=== PATIENT | female | born 1980 | race American Indian/Alaskan Native ===

== ENCOUNTER 2018-08-31 19:44 | Emergency (ER) | payer OTHER ==
[2018-08-31] MEDS ORDERED: KEPPRA 1,000 MG/NS 0.75% 100ML 1,000 MG/100 ML BAG IV ONE (20:36)
[2018-08-31 20:43] LABS: Hematocrit 36.2 % (30.3-42.9); Hemoglobin 12.2 gm/dl (10.1-14.3); Mean Corpuscular HGB Conc 34 % (30-34); Mean Corpuscular Volume 90 fl (79-97); Platelet Count 237 K/mm3 (140-440); Red Blood Count 4.01 M/mm3 (3.65-5.03); Red Cell Distribution Width 15.2 % (13.2-15.2)
[2018-08-31] MEDS ORDERED: CATAPRES PO ONE (20:55)
--- NOTE | 2018-08-31 20:55 | Emergency Department Report ---
ED Seizure HPI - General Chief Complaint: Seizure Stated Complaint: BLURRED VISION, DIZZY, LOW BACK PAIN Time Seen by Provider: 08/31/18 20:17 Source: EMS Mode of arrival: Stretcher Limitations: No Limitations - History of Present Illness Initial Comments: 37-year-old female with past medical history of hypertension, seizures, and "kidney issue since she was a child" presents to the hospital complaining of seizure prior to arrival. Patient denies tongue laceration or urinary incontinence. She has been noncompliant with his seizure and blood pressure medicine for at least 2 months. He cannot recall her seizure medications that thinks it starts with "C". She also states she takes hydrochlorothiazide 5 mg daily which is reduced from 25 mg but she is also unsure of this medication. Patient currently denies blurred vision or headache. She complains of bilateral back pain which is chronic and ongoing. She complains of dysuria 3 days withou t reports of fever. She currently does not have a primary care doctor. Last sz was 2 months ago - Related Data Previous Rx's Medication Instructions Recorded Last Taken Type amLODIPine [Norvasc] 5 mg PO DAILY #30 tab 09/01/18 Unknown Rx levETIRAcetam [Keppra TAB] 500 mg PO BID #60 tablet 09/01/18 Unknown Rx Allergies Allergy/AdvReac Type Severity Reaction Status Date / Time Penicillins AdvReac Anaphylaxis Verified 08/31/18 20:07 ED Review of Systems ROS: Stated complaint: BLURRED VISION, DIZZY, LOW BACK PAIN Other details as noted in HPI Comment: All other systems reviewed and negative ED Past Medical Hx - Past Medical History Previous Medical History?: Yes Hx Hypertension: Yes Hx Seizures: Yes Hx Kidney Stones: Yes Additional medical history: "Kidney issues" - Surgical History Past Surgical History?: No - Social History Smoking Status: Current Some Day Smoker Substance Use Type: Alcohol - Medications Home Medications: Home Medications Medication Instructions Recorded Confirmed Last Taken Type amLODIPine [Norvasc] 5 mg PO DAILY #30 tab 09/01/18 Unknown Rx levETIRAcetam [Keppra TAB] 500 mg PO BID #60 tablet 09/01/18 Unknown Rx ED Physical Exam - General Limitations: No Limitations - Other Other exam information: General: No limitations, patient is alert in no acute distress Head exam: Atraumatic, normocephalic Eyes exam: Normal appearance, pupils equal reactive to light, extraocular move ments intact ENT: Moist mucous membrane, normal oropharynx without tongue laceration or abrasion Neck exam: Normal inspection, full range of motion, no meningismus nontender Respiratory exam: Clear to auscultation bilateral, no wheezes, rales, crackles Cardiovascular: Normal rate and rhythm, normal heart sounds Abdomen: Soft, nondistended, and nontender, with normal bowel sounds, no rebound, or guarding Extremity: Full range of motion normal inspection no deformity Back: Normal Inspection, full range of motion, no tenderness Neurologic: Alert, oriented x3, cranial nerves intact, no motor or sensory deficit Psychiatric: normal affect, normal mood Skin: Warm, dry, intact ED Course Vital Signs 08/31/18 08/31/18 08/31/18 19:56 20:00 20:08 Temperature Pulse Rate 67 Respiratory 12 12 Rate Blood Pressure 177/110 Blood Pressure 177/110 [Left] O2 Sat by Pulse 99 98 99 Oximetry 08/31/18 08/31/18 08/31/18 20:13 20:16 20:30 Temperature 98.4 F Pulse Rate 67 87 Respiratory 13 13 Rate Blood Pressure 177/110 177/110 Blood Pressure [Left] O2 Sat by Pulse 97 99 Oximetry 08/31/18 08/31/18 08/31/18 20:41 20:50 21:00 Temperature Pulse Rate 76 Respiratory 13 Rate Blood Pressure 177/110 175/123 Blood Pressure 181/126 [Left] O2 Sat by Pulse 99 98 Oximetry 08/31/18 08/31/18 08/31/18 21:04 21:15 21:31 Temperature Pulse Rate 72 68 Respiratory 12 Rate Blood Pressure 175/123 181/126 181/126 Blood Pressure [Left] O2 Sat by Pulse 98 98 Oximetry 08/31/18 08/31/18 08/31/18 21:45 22:00 22:15 Temperature Pulse Rate Respiratory Rate Blood Pressure 175/123 162/111 162/111 Blood Pressure [Left] O2 Sat by Pulse 99 98 99 Oximetry 09/01/18 09/01/18 00:43 03:32 Temperature Pulse Rate 71 60 Respiratory 15 17 Rate Blood Pressure Blood Pressure 167/106 139/97 [Left] O2 Sat by Pulse 100 99 Oximetry ED Medical Decision Making - Lab Data Result diagrams: 08/31/18 20:26 08/31/18 20:26 Lab Results 08/31/18 08/31/18 08/31/18 Range/Units 20:26 20:26 20:26 WBC 6.8 (4.5-11.0) K/mm3 RBC 4.01 (3.65-5.03) M/mm3 Hgb 12.2 (10.1-14.3) gm/dl Hct 36.2 (30.3-42.9) % MCV 90 (79-97) fl MCH 30 (28-32) pg MCHC 34 (30-34) % RDW 15.2 (13.2-15.2) % Plt Count 237 (140-440) K/mm3 Sodium 137 (137-145) mmol/L Potassium 4.1 (3.6-5.0) mmol/L Chloride 101.2 (98-107) mmol/L Carbon Dioxide 23 (22-30) mmol/L Anion Gap 17 mmol/L BUN 9 (7-17) mg/dL Creatinine 0.9 (0.7-1.2) mg/dL Estimated GFR > 60 ml/min BUN/Creatinine Ratio 10 % Glucose 112 H (65-100) mg/dL POC Glucose (70-105) Calcium 8.9 (8.4-10.2) mg/dL Magnesium 1.90 (1.7-2.3) mg/dL HCG, Qual (Negative) Urine Color (Yellow) Urine Turbidity (Clear) Urine pH (5.0-7.0) Ur Specific [place] (1.003-1.030) Urine Protein (Negative) mg/dL Urine Glucose (UA) (Negative) mg/dL Urine Ketones (Negative) mg/dL Urine Blood (Negative) Urine Nitrite (Negative) Urine Bilirubin (Negative) Urine Urobilinogen (<2.0) mg/dL Ur Leukocyte Esterase (Negative) Urine WBC (Auto) (0.0-6.0) /HPF Urine RBC (Auto) (0.0-6.0) /HPF U Epithel Cells (Auto) (0-13.0) /HPF Urine Mucus /HPF Urine Opiates Screen Urine Methadone Screen Ur Barbiturates Screen Ur Phencyclidine Scrn Ur Amphetamines Screen U Benzodiazepines Scrn Urine Cocaine Screen U Marijuana (THC) Screen Drugs of Abuse Note 08/31/18 08/31/18 08/31/18 Range/Units 20:26 20:31 20:55 WBC (4.5-11.0) K/mm3 RBC (3.65-5.03) M/mm3 Hgb (10.1-14.3) gm/dl Hct (30.3-42.9) % MCV (79-97) fl MCH (28-32) pg MCHC (30-34) % RDW (13.2-15.2) % Plt Count (140-440) K/mm3 Sodium (137-145) mmol/L Potassium (3.6-5.0) mmol/L Chloride (98-107) mmol/L Carbon Dioxide (22-30) mmol/L Anion Gap mmol/L BUN (7-17) mg/dL Creatinine (0.7-1.2) mg/dL Estimated GFR ml/min BUN/Creatinine Ratio % Glucose (65-100) mg/dL POC Glucose 100 (70-105) Calcium (8.4-10.2) mg/dL Magnesium (1.7-2.3) mg/dL HCG, Qual Negative (Negative) Urine Color Yellow (Yellow) Urine Turbidity Slightly-cloudy (Clear) Urine pH 9.0 H (5.0-7.0) Ur Specific [place] 1.021 (1.003-1.030) Urine Protein 100 mg/dl (Negative) mg/dL Urine Glucose (UA) Neg (Negative) mg/dL Urine Ketones Neg (Negative) mg/dL Urine Blood Lg (Negative) Urine Nitrite Neg (Negative) Urine Bilirubin Neg (Negative) Urine Urobilinogen 4.0 (<2.0) mg/dL Ur Leukocyte Esterase Neg (Negative) Urine WBC (Auto) 2.0 (0.0-6.0) /HPF Urine RBC (Auto) > 182.0 (0.0-6.0) /HPF U Epithel Cells (Auto) 16.0 H (0-13.0) /HPF Urine Mucus Few /HPF Urine Opiates Screen Urine Methadone Screen Ur Barbiturates Screen Ur Phencyclidine Scrn Ur Amphetamines Screen U Benzodiazepines Scrn Urine Cocaine Screen U Marijuana (THC) Screen Drugs of Abuse Note 08/31/18 Range/Units 20:55 WBC (4.5-11.0) K/mm3 RBC (3.65-5.03) M/mm3 Hgb (10.1-14.3) gm/dl Hct (30.3-42.9) % MCV (79-97) fl MCH (28-32) pg MCHC (30-34) % RDW (13.2-15.2) % Plt Count (140-440) K/mm3 Sodium (137-145) mmol/L Potassium (3.6-5.0) mmol/L Chloride (98-107) mmol/L Carbon Dioxide (22-30) mmol/L Anion Gap mmol/L BUN (7-17) mg/dL Creatinine (0.7-1.2) mg/dL Estimated GFR ml/min BUN/Creatinine Ratio % Glucose (65-100) mg/dL POC Glucose (70-105) Calcium (8.4-10.2) mg/dL Magnesium (1.7-2.3) mg/dL HCG, Qual (Negative) Urine Color (Yellow) Urine Turbidity (Clear) Urine pH (5.0-7.0) Ur Specific [place] (1.003-1.030) Urine Protein (Negative) mg/dL Urine Glucose (UA) (Negative) mg/dL Urine Ketones (Negative) mg/dL Urine Blood (Negative) Urine Nitrite (Negative) Urine Bilirubin (Negative) Urine Urobilinogen (<2.0) mg/dL Ur Leukocyte Esterase (Negative) Urine WBC (Auto) (0.0-6.0) /HPF Urine RBC (Auto) (0.0-6.0) /HPF U Epithel Cells (Auto) (0-13.0) /HPF Urine Mucus /HPF Urine Opiates Screen Presumptive negative Urine Methadone Screen Presumptive negative Ur Barbiturates Screen Presumptive negative Ur Phencyclidine Scrn Presumptive negative Ur Amphetamines Screen Presumptive negative U Benzodiazepines Scrn Presumptive negative Urine Cocaine Screen Presumptive negative U Marijuana (THC) Screen Presumptive positive Drugs of Abuse Note Disclamer - Radiology Data Radiology results: report reviewed PROCEDURE: CT ABDOMEN PELVIS WO CON TECHNIQUE: Helical CT was performed of the abdomen. No intravenous or oral contrast were given. Scanning was performed in the axial plane. Images were reconstructed in sagittal and coronal planes. HISTORY: back pain, hematuria COMPARISONS: None FINDINGS: Images through the lower thorax show a small pericardial effusion. Lung bases are clear. The liver, gallbladder, pancreas, spleen, adrenal glands appear normal. The kidneys appear normal. There is no hydronephrosis or urolithiasis. There is a pelvic mass anterior and superior to the uterus measuring 8.2 x 7.3 x 6.7 cm. It may be arising from the uterus. It is not well characterized without intravenous contrast. The stomach appears grossly within normal limits. There are no abnormally dilated loops of bowel or acute inflammatory changes. A normal-appearing appendix is identified. The abdominal aorta has a normal diameter. The bones and subcutaneous soft tissues are unremarkable for age. IMPRESSION: 1. 8.2 cm pelvic mass. Recommend further evaluation with ultrasound. 2. No evidence of hydronephrosis or urolithiasis 3. Small pericardial effusion PROCEDURE: US TRANSVAGINAL TECHNIQUE: Real-time transvaginal sonography in multiple planes of the pelvis was performed. The pelvic structures were not optimally visualized. Transvaginal sonography was then performed to better evaluate the structures and/or abnormalities described below with image documentation. Grayscale, color flow Doppler imaging, and velocity spectral waveform analysis of the ovaries was employed (duplex imaging). HISTORY: pelvic mass on ct COMPARISONS: None . FINDINGS: UTERUS Size: 11.2 x 6.7 x 6.6 cm. Endometrial thickness: 16.7 mm. Orientation: anteverted. Cervix: Normal. Fibroids/masses: There are 3 intramural uterine fibroids measuring 2.2 cm, 3.7 cm and 4.4 cm in diameter.. RIGHT Ovary: 2.8 x 2.2 x 2.0 cm. Appearance: Normal. Doppler images: Normal spectral waveforms and color flow images of the arterial inflow and venous outflow.. LEFT Ovary: 2.4 x 1.9 x 2.2 cm. Appearance: Normal. Doppler images: Normal spectral waveforms and color flow images of the arterial inflow and venous outflow.. Pelvic fluid: None. IMPRESSION: There are multiple uterine fibroids. Ovaries are unremarkable. There is no free fluid.. PROCEDURE: US PELVIC COMPLETE TECHNIQUE: Real-time transabdominal sonography in multiple planes of the pelvis was performed. The pelvic structures were not optimally visualized. Transvaginal sonography was then performed to better evaluate the structures and/or abnormalities described below with image documentation. Grayscale, color flow Doppler imaging, and velocity spectral waveform analysis of the ovaries was employed (duplex imaging). HISTORY: pelvic mass on ct COMPARISONS: None . FINDINGS: UTERUS Size: 11.2 x 6.7 x 6.6 cm. Endometrial thickness: 16.7 mm. Orientation: anteverted. Cervix: Normal. Fibroids/masses: There are 3 intramural uterine fibroids measuring 2.2 cm, 3.7 cm and 4.4 cm in diameter.. RIGHT Ovary: 2.8 x 2.2 x 2.0 cm. Appearance: Normal. Doppler images: Normal spectral waveforms and color flow images of the arterial inflow and venous outflow.. LEFT Ovary: 2.4 x 1.9 x 2.2 cm. Appearance: Normal. Doppler images: Normal spectral waveforms and color flow images of the arterial inflow and venous outflow.. Pelvic fluid: None. IMPRESSION: There are multiple uterine fibroids. Ovaries are unremarkable. There is no free fluid.. - Medical Decision Making ua with blood thought initially due to hematuria but pt is also on her menstrual cycle us confers multiple fibroids Blood pressure improved after clonidine and Norvasc Patient would be discharged home on blood pressure and seizure medication and follow-up encouraged. - Differential Diagnosis medication noncompliance, seizure, electrolyte abnormality, UTI Critical Care Time: No Critical care attestation.: If time is entered above; I have spent that time in minutes in the direct care of this critically ill patient, excluding procedure time. ED Disposition Clinical Impression: Seizure, Uncontrolled hypertension, Noncompliance with medication regimen, Uterine fibroid Disposition: [id number] TO HOME OR SELFCARE Is pt being admited?: No Does the pt Need Aspirin: No Condition: Stable Instructions: Hypertension (ED), Recurrent Seizures Adult (ED), Uterine Fibroids (ED) Additional Instructions: Take the medication as prescribed. Follow up with your doctor or the clinic/doctor provided. Return if symptoms worsen as indicated by your discharge instructions Prescriptions: levETIRAcetam [Keppra TAB] 500 mg PO BID #60 tablet amLODIPine [Norvasc] 5 mg PO DAILY #30 tab Referrals: CLAYTON PACHECO MD [Primary Care Provider] - 3-5 Days (primary care doctor ) GENOVEVA DAVE MD [Staff Physician] - 3-5 Days (neurology ) MANUEL STEIN MD [Staff Physician] - 3-5 Days (equipment operator/laborer/supervisor) Time of Disposition: 03:54
[2018-08-31 21:05] LABS: BUN/Creatinine Ratio 10; Blood Urea Nitrogen 9 mg/dL (7-17); Calcium 8.9 mg/dL (8.4-10.2); Hemolysis Index 9
[2018-08-31 21:11] LABS: Bilirubin,Urine NEG (Negative); Blood,Urine LG (Negative); Color,Urine Yellow (Yellow); Mucus,Urine FEW /HPF
[2018-08-31 21:12] LABS: RBC,Urine > 182.0 /HPF (0.0-6.0)
[2018-08-31 21:17] LABS: Amphetamine Screen,Urine PRESUMPTIVE NEGATIVE; Benzodiazepines Screen,Urine PRESUMPTIVE NEGATIVE; Cocaine Screen,Urine PRESUMPTIVE NEGATIVE; Methadone Screen,Urine PRESUMPTIVE NEGATIVE; Opiate Screen,Urine PRESUMPTIVE NEGATIVE
[2018-08-31 21:50] LABS: Cannabinoid Screen,Urine PRESUMPTIVE POSITIVE
--- NOTE | 2018-09-01 00:32 | Cat Scan Report ---
PROCEDURE: CT ABDOMEN PELVIS WO CON TECHNIQUE: Helical CT was performed of the abdomen. No intravenous or oral contrast were given. Scan bethanie was performed in the axial plane. Images were reconstructed in sagittal and coronal planes. HISTORY: back pain, hematuria COMPARISONS: None FINDINGS: Images through the lower thorax show a small pericardial effusion. Lung bases are clear. The liver, gallbladder, pancreas, spleen, adrenal glands appear normal. The kidneys appear normal. There is no hydronephrosis or urolithiasis. There is a pelvic mass anterior and superior to the uterus measuring 8.2 x 7.3 x 6.7 cm. It may be ar ising from the uterus. It is not well characterized without intravenous contrast. The stomach appears grossly within normal limits. There are no abnormally dilated loops of bowel or acute inflammatory changes. A normal-appearing appe ndix is identified. The abdominal aorta has a normal diameter. The bones and subcutaneous soft tissues are unremarkable for age. IMPRESSION: 1. 8.2 cm pelvic mass. Recommend further evaluation with ultrasound. 2. No evidence of hydronephrosis or urolithiasis 3. Small pericardial effusion This document is electronically signed by Kerri Bustamante MD., Sep 01 2018 12:30:05 AM ET
[2018-09-01] MEDS ORDERED: NORMODYNE IV ONE ×2 (00:44→00:48)
[2018-09-01] MEDS ORDERED: NORVASC PO ONE (00:58)
[2018-09-01 03:32] VITALS: BP 139/97
--- NOTE | 2018-09-01 03:34 | Ultrasound Report ---
PROCEDURE: US TRANSVAGINAL TECHNIQUE: Real-time transvaginal sonography in multiple planes of the pelvis was performed. The pel kamlesh structures were not optimally visualized. Transvaginal sonography was then performed to better ev aluate the structures and/or abnormalities described below with image documentation. Grayscale, color flow Doppler imaging, and velocity spectral waveform analysis of the ovaries was employed (duplex im aging). HISTORY: pelvic mass on ct COMPARISONS: None . FINDINGS: UTERUS Size: 11.2 x 6.7 x 6.6 cm. Endometrial thickness: 16.7 mm. Orientation: anteverted. Cervix: Normal. Fibroids/masses: There are 3 intramural uterine fibroids measuring 2.2 cm, 3.7 cm and 4.[address] RIGHT Ovary: 2.8 x 2.2 x 2.0 cm. Appearance: Normal. Doppler images: Normal spectral waveforms and color flow images of the arterial inflow and venous out flow.. LEFT Ovary: 2.4 x 1.9 x 2.2 cm. Appearance: Normal. Doppler images: Normal spectral waveforms and color flow images of the arterial inflow and venous out flow.. Pelvic fluid: None. IMPRESSION: There are multiple uterine fibroids. Ovaries are unremarkable. There is no free fluid.. This document is electronically signed by Umer Plata MD., Sep 01 2018 03:32:19 AM ET
--- NOTE | 2018-09-01 03:34 | Ultrasound Report ---
PROCEDURE: US PELVIC COMPLETE TECHNIQUE: Real-time transabdominal sonography in multiple planes of the pelvis was performed. The p elvic structures were not optimally visualized. Transvaginal sonography was then performed to better evaluate the structures and/or abnormalities described below with image documentation. Grayscale, col or flow Doppler imaging, and velocity spectral waveform analysis of the ovaries was employed (duplex imaging). HISTORY: pelvic mass on ct COMPARISONS: None . FINDINGS: UTERUS Size: 11.2 x 6.7 x 6.6 cm. Endometrial thickness: 16.7 mm. Orientation: anteverted. Cervix: Normal. Fibroids/masses: There are 3 intramural uterine fibroids measuring 2.2 cm, 3.7 cm and 4.[address] RIGHT Ovary: 2.8 x 2.2 x 2.0 cm. Appearance: Normal. Doppler images: Normal spectral waveforms and color flow images of the arterial inflow and venous out flow.. LEFT Ovary: 2.4 x 1.9 x 2.2 cm. Appearance: Normal. Doppler images: Normal spectral waveforms and color flow images of the arterial inflow and venous out flow.. Pelvic fluid: None. IMPRESSION: There are multiple uterine fibroids. Ovaries are unremarkable. There is no free fluid.. This document is electronically signed by Umre Plata MD., Sep 01 2018 03:31:32 AM ET
== END 2018-09-01 04:09 | disposition home or self-care (01) ==
LOC: ED 19:44
DX: R56.9 Unspecified convulsions (principal); I10 Essential (primary) hypertension; D25.9 Leiomyoma of uterus, unspecified; F17.200 Nicotine dependence, unspecified, uncomplicated; Z91.14 Patient's other noncompliance with medication regimen; Z88.0 Allergy status to penicillin
CPT/HCPCS: 36415; 74176; 76830; 76856; 80048; 80307; 81001; 82962; 83735; 84703; 85027; 96374; 99285; J1953